=== PATIENT | male | born 1955 | race Caucasian/White ===

== ENCOUNTER 2016-11-29 17:10 | Emergency (ER) | payer OTHER ==
[~2016-11-29] VITALS: Ht 172.7 cm; Wt 76.4 kg
[~2016-11-29 17:10] MED LIST: ATARAX,VISTARIL25 MG PO; ATARAX10 MG PO; BENADRYL50 MG PO; NAPROSYN500 MG PO; NEXIUM40 MG PO; NORCO 5/3251 TABLET PO; PREDNISONE10 M1 PO; TIZANIDINE HCL2 MG PO; XANAX0.5 MG PO
[2016-11-29 18:33] VITALS: BP 155/97
== END 2016-11-29 18:33 | disposition home or self-care (01) ==
LOC: EME 17:10
DX: L65.9 Nonscarring hair loss, unspecified (principal); Z85.828 Personal history of other malignant neoplasm of skin; F17.200 Nicotine dependence, unspecified, uncomplicated; Z88.0 Allergy status to penicillin
CPT/HCPCS: 99281; 99283

== ENCOUNTER 2016-12-07 08:19 | Emergency (ER) | payer OTHER ==
[~2016-12-07] VITALS: Ht 172.7 cm; Wt 75.9 kg
[2016-12-07 09:45] LABS: BASOPHIL COUNT 0.1 K/uL (0-0.1); EOSINOPHIL (%) 0.8 % (0-5); EOSINOPHIL COUNT 0.1 K/uL (0-0.3); HEMATOCRIT 43.4 % (38.0-50.0); IMMATURE GRANULOCYTE (%) 0.4 % (0.0-0.7); IMMATURE GRANULOCYTE COUNT 0.1 K/uL; INSTRUMENT ABS NEUTROPHIL CT 10.3 K/uL; LYMPHOCYTE COUNT 2.4 K/uL (1.0-2.8); MCH 30.1 PG (29.0-34.0); MCHC 33.6 G/DL (30.0-36.0); MCV 89.5 FL (86-99); MONOCYTE (%) 5.7 % (3-12); MONOCYTE COUNT 0.8 K/uL (0-0.8); NEUTROPHIL (%) 74.8 % (45-76); NEUTROPHIL COUNT 10.3 K/uL (1.8-6.4); PLATELET COUNT 240 K/uL (156-360); RBC DIS.WIDTH-CV 12.4 % (11.8-14.6); RBC DIS.WIDTH-SD 40.7 % (39-53); RED BLOOD COUNT 4.85 M/uL (4.00-5.50); WHITE BLOOD COUNT 13.7 K/uL (4.1-10.2)
[2016-12-07 09:55] LABS: CHLORIDE 105 mEq/L (99-109); POTASSIUM 3.9 mEq/L (3.7-5.4); SODIUM 138 mEq/L (136-147)
[2016-12-07 09:57] VITALS: BP 148/90
[2016-12-07 09:57] LABS: GLUCOSE 94 mg/dL (70-99)
[2016-12-07 09:59] LABS: ANION GAP 9 MEQ/L (2-14)
[2016-12-07 10:01] LABS: GFR ESTIMATE (CALCULATED) > 59 mL/min/
[2016-12-07 10:02] LABS: UREA NITROGEN (BUN) 12 mg/dL (9-23)
== END 2016-12-07 10:06 | disposition home or self-care (01) ==
LOC: EME 08:19
PROVIDERS: Emergency Medicine
DX: L76.21 Postprocedural hemorrhage of skin and subcutaneous tissue following a dermatologic procedure (principal); T81.4XXA Infection following a procedure, initial encounter; Z85.828 Personal history of other malignant neoplasm of skin; Z88.0 Allergy status to penicillin; F17.200 Nicotine dependence, unspecified, uncomplicated
CPT/HCPCS: 80048; 83605; 85025; 99281; 99283

== ENCOUNTER 2017-09-09 17:53 | Emergency (ER) | payer OTHER ==
[~2017-09-09] VITALS: Ht 172.7 cm; Wt 72.3 kg
[2017-09-09 21:12] VITALS: BP 155/81
== END 2017-09-09 21:13 | disposition home or self-care (01) ==
LOC: EME 17:53
DX: M25.561 Pain in right knee (principal); M54.2 Cervicalgia; R42 Dizziness and giddiness; R51 Headache; R10.9 Unspecified abdominal pain; V49.40XA Driver injured in collision with unspecified motor vehicles in traffic accident, initial encounter; F17.200 Nicotine dependence, unspecified, uncomplicated
CPT/HCPCS: 70450; 72125; 73564; 99281; 99284